=== PATIENT | male | born 1995 | race Two or more races ===

== ENCOUNTER → 2019-10-22 | Emergency (ER) | payer MEDICAID ==
[~2019-10-22] VITALS: Ht 167.6 cm; Wt 65.8 kg
== END ==
LOC: ER 20:56
DX: Z04.1 Encounter for examination and observation following transport accident (principal)

== ENCOUNTER 2020-05-25 05:05 | Emergency (ER) | payer MEDICAID ==
[~2020-05-25] VITALS: Ht 172.7 cm; Wt 71.7 kg
[2020-05-25 05:20] VITALS: BP 121/75
== END 2020-05-25 06:08 | disposition home or self-care (01) ==
LOC: ER 05:05
DX: S43.101A Unspecified dislocation of right acromioclavicular joint, initial encounter (principal); W22.8XXA Striking against or struck by other objects, initial encounter; Y93.41 Activity, dancing; Y92.89 Other specified places as the place of occurrence of the external cause; Y99.8 Other external cause status
CPT/HCPCS: 73030